=== PATIENT | female | born 1990 | race Caucasian/White ===

== ENCOUNTER 2018-10-06 17:57 | Emergency (ER) | payer OTHER ==
[~2018-10-06] VITALS: Ht 160 cm; Wt 49.9 kg
[2018-10-06] MEDS ORDERED: SEROQUEL50 MG PO (18:06)
[2018-10-06] MEDS ORDERED: ZOLOFT100 MG PO (18:06)
[2018-10-06] MEDS ORDERED: VALACYCLOVIR1000 MG PO (23:10)
[2018-10-06] MEDS ORDERED: INTESTINEX680 M1 PO (23:10)
[2018-10-06] MEDS ORDERED: CEPHALEXIN500 MG PO (23:10)
[2018-10-06] MEDS ORDERED: TERCONAZOLE80 MG VAG (23:10)
== END 2018-10-07 00:28 | disposition home or self-care (01) ==
LOC: ER 17:57
DX: R59.0 Localized enlarged lymph nodes (principal); N76.0 Acute vaginitis